=== PATIENT | male | born 1935 | race Caucasian/White ===

== ENCOUNTER 2019-07-09 01:55 | Inpatient (IN) | payer MEDICARE ==
[~2019-07-09] VITALS: Ht 175.3 cm; Wt 105.9 kg
[2019-07-09] VITALS (21 sets, daily range): BP systolic 108–178; BP diastolic 44–89
[~2019-07-09 01:55] MED LIST: AMLO-258 PO; ASPI-1443 PO; CHOL200059 PO; CYAN-52 PO; DOXA2TAB2 PO; FLAX100031 PO; GABA-531 PO; LOSA100T58 PO; METO-408 PO; NITR0.4T50 SL; OMEP20TA2 PO; SIMV-46 PO; SULF500T8 PO; WARF2.5T85 PO
[2019-07-09] MEDS ORDERED: HYDRALAZINE HCL 20 MG/ML VIAL IV PRN (05:45)
[2019-07-09] MEDS ORDERED: NITROGLYCERIN 0.4 MG SL TAB SL PRN ×2 (05:45→06:15)
[2019-07-09] MEDS ORDERED: LACTULOSE 20 GM/30 ML UDCUP PO PRN (05:45)
[2019-07-09] MEDS ORDERED: MORPHINE SULFATE 2 MG/ML 1ML SYG IV PRN (05:45)
[2019-07-09] MEDS ORDERED: ACETAMINOPHEN 325 MG TAB PO PRN ×2 (05:45)
[2019-07-09 06:38] LABS: BASOPHILS % (AUTO) 1.3 % (0.0-5.0); EOSINOPHILS % (AUTO) 7.4 % (0.0-8.0); HEMATOCRIT 38.4 % (42-54); LYMPHOCYTES % (AUTO) 32.2 % (21.0-51.0); MEAN CORPUSCULAR HEMOGLOBIN 28.1 pg (27.0-33.0); MEAN CORPUSCULAR HGB CONC 31.5 g/dL (32.0-36.0); MEAN CORPUSCULAR VOLUME 89.3 fL (79-99); MONOCYTES % (AUTO) 9.8 % (3.0-13.0); PLATELET COUNT (AUTO) 162 K/uL (130-400); RED CELL DISTRIBUTION WIDTH 13.7 % (11.0-15.5); WHITE BLOOD COUNT (AUTO) 6.3 K/uL (4.8-10.8)
[2019-07-09 06:47] LABS: CREATININE 1.4 mg/dL (0.5-1.5); POTASSIUM 4.1 mmol/L (3.5-5.1)
[2019-07-09 06:50] LABS: INR 1.02 (0.85-1.15); PARTIAL THROMBOPLASTIN TIME 29.2 SEC (26.3-35.5)
[2019-07-09 06:53] LABS: ALBUMIN 3.8 g/dL (3.5-5.0); BILIRUBIN,TOTAL 0.4 mg/dL (0.2-1.0); TOTAL PROTEIN, SERUM 7.2 g/dL (6.0-8.3)
[2019-07-09] MEDS ORDERED: AMIO200T6 PO (06:57)
[2019-07-09] MEDS ORDERED: APIX5TAB PO (07:02)
[2019-07-09] MEDS: METOPROLOL SUCCINATE 50 MG TAB.SR.24H PO SCH ×2 (08:59→18:33)
[2019-07-09] MEDS: ASPIRIN 81 MG EC TAB PO SCH (08:59)
[2019-07-09] MEDS: FAMOTIDINE/PF 20 MG/2 ML VIAL IV SCH (09:39)
[2019-07-09] MEDS ORDERED: SODIUM BICARB 50MEQ 50ML VIAL ONE (09:52)
[2019-07-09] MEDS ORDERED: HEPARIN SODIUM 1000UNIT/ML 10ML VIAL ONE ×2 (09:52→11:49)
[2019-07-09] MEDS ORDERED: NITROGLYCERIN 2 MG/VIAL VIAL IV ONE (09:52)
[2019-07-09] MEDS ORDERED: MEPERIDINE-PF 25 MG/ML SYG ONE ×2 (09:53→10:57)
[2019-07-09] MEDS ORDERED: MIDAZOLAM HCL 1 MG/ML 2ML VIAL ONE ×2 (09:53→10:57)
[2019-07-09] MEDS ORDERED: LIDOCAINE HCL 2% 20ML ONE (09:53)
[2019-07-09] MEDS ORDERED: IOHEXOL-350 50ML VIAL IV ONE (09:55)
[2019-07-09] MEDS ORDERED: IOHEXOL 350 MG/ML 100ML INFUS..BTL IV ONE (09:55)
--- NOTE | 2019-07-09 10:02 | NUR ---
INITIAL Met w patient at bedside for dc planning. verified phone numbers- number of spouse was incorrect- should be [phone]. Added to face sheet and faxed to registration, tagged chart, and informed Ely . Patient states he is independent, drives, uses a cane out of the house- home has three steps outside, is safe and accessible, shower bench- no services, PMD is ayanna in [place] and had seen 2x this year. Pharmacy [facility] in [place]. Spouse Liset to provide transport/care at discharge. called jama and informed her that pt ws turning off his phone, but she would be contacted when he returned to his room post procedure. [facility] TRANSFER- [facility]ENDING [facility] TODAY. HX of CABG in the past, states recovered well. DCP is home at this itme Addendum: 07/09/19 at 1010 by DAVID SERRATO RN Amended: Links added.
--- NOTE | 2019-07-09 10:10 | NUR ---
PATIENT OFF UNIT TO PUMP SERVICE SUPERVISOR FOR LEFT HEART CATHETERIZATION BY DR MARCOS
[2019-07-09] MEDS ORDERED: HEPARIN 25000 UNITS/250 ML D5W 250 ML IV SCH (11:45)
[2019-07-09] MEDS ORDERED: ALPRAZOLAM 0.5 MG TABLET PO PRN (11:45)
[2019-07-09] MEDS ORDERED: MORPHINE SULFATE 5 MG/ML VIAL IV PRN ×2 (11:45)
[2019-07-09] MEDS ORDERED: HEPARIN 25000 UNITS/250 ML D5W 250 ML IV ONE (11:49)
--- NOTE | 2019-07-09 12:40 | NUR ---
RECEIVED FROM DIETARY SERVICES DIRECTOR VIA BED ACCOMPANIED BY Dann AMOS RN. PT. DROWSY, ORIENTED X3. RESP.'S EVEN AND UNLABORED. DENIES ANY C/O SOB, DENIES ANY CURRENT PAIN. INSTRUCTED ON STRICT BR PER MD ORDERS AND RIGHT GROIN WITH FEMORAL SHEATH IN PLACE; VERBALIZED UNDERSTANDING. RIGHT GROIN WITH 6FR ARTERIAL SHEATH IN PLACE, AREA SOFT, NO ECCHYMOSIS OR HEMATOMA NOTED. CALL LIGHT WITHIN REACH, VERBALIZED ABILITY TO USE. BED LOW, SIDE RAILS UP X3.
[2019-07-09] MEDS ORDERED: MORPHINE SULFATE 4 MG/1ML SYG IV PRN (14:45)
--- NOTE | 2019-07-09 15:22 | NUR ---
PATIENT TRANSFERRED TO 16 ROOM REPORT GIVEN TO
--- NOTE | 2019-07-09 15:29 | NUR ---
RESTING IN BED IN REVERSE [place] POSITION FOR COMFORT. RIGHT SIDE-LYING POSITION. EYES CLOSED, RESP.'S EVEN AND UNLABORED. CALL LIGHT WITHIN REACH. SIDE RAILS UP.
[2019-07-09] MEDS: ONDANSETRON HCL 4 MG/2 ML VIAL IVP PRN (18:48)
[2019-07-09] MEDS: DOXAZOSIN MESYLATE 2 MG TABLET PO SCH (22:40)
[2019-07-09] MEDS: SIMVASTATIN 20 MG TABLET PO SCH (22:40)
[2019-07-10] VITALS (23 sets, daily range): BP systolic 98–158; BP diastolic 43–86
--- NOTE | 2019-07-10 03:33 | NUR ---
PATIENT UPDATE Pt kept npo post mn, going for Impella insertion, PTCA/ Stent placement this am. Continues with the heparin drip as per treatment protocol. Rt groin with the rt femoral a line in place, site soft to touch, a line patent, pulses in the rt lower extremity palpable. Reinforced instructions in keeping the rt leg straight, pt able to follow commands. Assisted in getting repositioned in the bed. No chest pain, no shortness of breath. Was comfortable with 2l of oxygen per nasal cannula, was nauseous at shift change, responded well with the zofran iv.CHG bath done, started sleeping well after the bedbath done before 0200.Vital signs stable, not in any form of acute distress. Running NSR bet 80's to 90's in the monitor, no ectopy noted. Will get the pt to sign the consent for the procedure at 0500.
[2019-07-10 04:36] LABS: HEMATOCRIT 30.4 % (42-54); MEAN CORPUSCULAR HEMOGLOBIN 27.9 pg (27.0-33.0); MEAN CORPUSCULAR HGB CONC 31.6 g/dL (32.0-36.0); MEAN CORPUSCULAR VOLUME 88.4 fL (79-99); PLATELET COUNT (AUTO) 115 K/uL (130-400); RED BLOOD CELL COUNT(AUTO) 3.44 MIL/uL (4.50-6.20); RED CELL DISTRIBUTION WIDTH 13.8 % (11.0-15.5); WHITE BLOOD COUNT (AUTO) 4.7 K/uL (4.8-10.8)
[2019-07-10 04:48] LABS: POTASSIUM 3.2 mmol/L (3.5-5.1)
[2019-07-10 04:52] LABS: B-TYPE NATRIURETIC PEPTIDE 196 pg/mL (0-100)
[2019-07-10] MEDS: FAMOTIDINE/PF 20 MG/2 ML VIAL IV SCH (09:11)
[2019-07-10] MEDS: ASPIRIN 81 MG EC TAB PO SCH (09:11)
[2019-07-10] MEDS: METOPROLOL SUCCINATE 50 MG TAB.SR.24H PO SCH ×2 (09:12→21:27)
[2019-07-10] MEDS: LOSARTAN 50 MG TABLET PO SCH (09:17)
[2019-07-10] MEDS: FUROSEMIDE 20 MG TABLET PO SCH (09:20)
[2019-07-10] MEDS ORDERED: HEPARIN SODIUM 1000UNIT/ML 10ML VIAL ONE ×2 (10:53→12:20)
[2019-07-10] MEDS ORDERED: SODIUM BICARB 50MEQ 50ML VIAL ONE (10:53)
[2019-07-10] MEDS ORDERED: IOHEXOL 350 MG/ML 100ML INFUS..BTL IV ONE (10:54)
[2019-07-10] MEDS ORDERED: MIDAZOLAM HCL 1 MG/ML 2ML VIAL ONE ×3 (10:54→13:09)
[2019-07-10] MEDS ORDERED: MEPERIDINE-PF 25 MG/ML SYG ONE ×3 (10:54→13:09)
[2019-07-10] MEDS ORDERED: IOHEXOL-350 50ML VIAL IV ONE (10:54)
[2019-07-10] MEDS ORDERED: NITROGLYCERIN 2 MG/VIAL VIAL IV ONE (10:54)
[2019-07-10] MEDS ORDERED: LIDOCAINE HCL 2% 20ML ONE (10:55)
[2019-07-10] MEDS ORDERED: POTASSIUM CHLORIDE 20MEQ/100ML 100 ML IV ONE (11:00)
--- NOTE | 2019-07-10 11:05 | NUR ---
PATIENT TAKEN TO ROUGH AND TRUING MACHINE OPERATOR VIA BED
[2019-07-10] MEDS ORDERED: IOHEXOL-350 75 ML VIAL IV ONE (12:53)
[2019-07-10] MEDS ORDERED: FLUMAZENIL 0.1MG/1ML 5ML VIAL IV ONE (14:31)
[2019-07-10] MEDS ORDERED: CLOPIDOGREL BISULFATE 300 MG TAB ONE (14:47)
[2019-07-10] MEDS ORDERED: CLOPIDOGREL BISULFATE 300 MG TAB PO STA (15:29)
[2019-07-10] MEDS ORDERED: ONDANSETRON HCL 4 MG/2 ML VIAL IVP STA (15:29)
--- NOTE | 2019-07-10 15:30 | NUR ---
PATIENT RETURNED FROM SPRAYER INSECTICIDE PATIENT NOW BACK IN ROOM, SHEATHS REMOVED, REFER TO POST CATH CHARTING
[2019-07-10] MEDS ORDERED: CLOPIDOGREL BISULFATE 300 MG TAB PO SCH (18:15)
[2019-07-10] MEDS ORDERED: CLOPIDOGREL BISULFATE 300 MG TAB PO ONE (18:15)
--- NOTE | 2019-07-10 19:45 | NUR ---
NURSING ROUNDS Pt alert and awake , denies any discomfort. Oscar groin with perclose dressing in place, soft to touch, no bleeding noted, pulses to oscar lower extremities good. With a hoffman catheter in place draining to adequate amount of urine. Started on one time hydration from Tank Car Mechanic with NS at 75 cc's per hour. No complaints of pain, verbalized feeling nauseous, emesis bag close by, head of the bed up, will give zofran prn. Reinforced instructions on bedrest for over 12 hrs, overnight and can be started out of bed in the am. No chest pain, no shortness of breath. Running normal sinus rhythm in the monitor in the 70's, no ectopies noted.
[2019-07-10] MEDS: DOXAZOSIN MESYLATE 2 MG TABLET PO SCH (21:26)
[2019-07-10] MEDS: ONDANSETRON HCL 4 MG/2 ML VIAL IVP PRN (21:26)
[2019-07-10] MEDS: SIMVASTATIN 20 MG TABLET PO SCH (21:26)
[2019-07-10] MEDS ORDERED: MAG HYDROX/AL HYDROX/SIMETH ES 30 ML SUSP UDCUP ONE (22:36)
[2019-07-11] VITALS (13 sets, daily range): BP systolic 91–132; BP diastolic 36–64
[2019-07-11 04:08] LABS: HEMATOCRIT 33.4 % (42-54); MEAN CORPUSCULAR HGB CONC 31.1 g/dL (32.0-36.0); PLATELET COUNT (AUTO) 119 K/uL (130-400); RED BLOOD CELL COUNT(AUTO) 3.71 MIL/uL (4.50-6.20); RED CELL DISTRIBUTION WIDTH 13.7 % (11.0-15.5); WHITE BLOOD COUNT (AUTO) 4.7 K/uL (4.8-10.8)
[2019-07-11 04:23] LABS: CREATININE 1.2 mg/dL (0.5-1.5); POTASSIUM 3.9 mmol/L (3.5-5.1)
--- NOTE | 2019-07-11 08:00 | NUR ---
DC F/C Figueroa catheter removed without difficulty. Patient tolerated well. Bilateral D-stat dressings removed and area cleaned. Covered with 4x4 dressings and Tegaderm.
[2019-07-11] MEDS ORDERED: FAMOTIDINE 20MG TAB 20 MG TAB ONE (08:12)
[2019-07-11] MEDS: METOPROLOL SUCCINATE 50 MG TAB.SR.24H PO SCH ×2 (08:40→20:09)
[2019-07-11] MEDS: ASPIRIN 81 MG EC TAB PO SCH (08:41)
[2019-07-11] MEDS: CLOPIDOGREL BISULFATE 75 MG TAB PO SCH (08:41)
[2019-07-11] MEDS: FUROSEMIDE 20 MG TABLET PO SCH (08:42)
[2019-07-11] MEDS: FAMOTIDINE 20MG TAB 20 MG TAB PO SCH ×2 (08:42→20:09)
[2019-07-11] MEDS: LOSARTAN 50 MG TABLET PO SCH (08:42)
--- NOTE | 2019-07-11 10:50 | NUR ---
Ambulated Patient ambulated around day patient area without difficulty. Vitals wnl after ambulation. Explained to patient he will be transferred to PCCU and patient verbalizes understanding.
--- NOTE | 2019-07-11 12:00 | NUR ---
HAND OFF REPORT HAND OFF REPORT GIVEN TO TONIA Quigley RN AND PATIENT TRANSFERRED TO ROOM 408 VIA . PATIENT WALKED IN HIS ROOM FROM TO BED WITHOUT DIFFICULTY.
--- NOTE | 2019-07-11 14:51 | NUR ---
DCP SW spoke with patient's spouse, Yeny Telfor, [phone]. Patient has no home services. DME: BPM, walker with seat, cane, nebulizer. Patient was able to complete ADL's independently and drove prior to coming to hospital. PCP is Dr. Nazario Tracy. Pharmacy is [facility] in [place]. Patient was transferred from [facility] in [place]. DCP is home.
[2019-07-11] MEDS: DOXAZOSIN MESYLATE 2 MG TABLET PO SCH (20:08)
[2019-07-11] MEDS: SIMVASTATIN 20 MG TABLET PO SCH (20:09)
[2019-07-12 00:28] VITALS: BP 119/63
[2019-07-12 04:04] LABS: BASOPHILS % (AUTO) 0.8 % (0.0-5.0); EOSINOPHILS % (AUTO) 4.2 % (0.0-8.0); HEMATOCRIT 33.4 % (42-54); LYMPHOCYTES % (AUTO) 33.4 % (21.0-51.0); MEAN CORPUSCULAR HEMOGLOBIN 28.6 pg (27.0-33.0); MEAN CORPUSCULAR HGB CONC 31.7 g/dL (32.0-36.0); MONOCYTES % (AUTO) 13.5 % (3.0-13.0); NEUTROPHILS % (AUTO) 47.7 % (40.0-77.0); PLATELET COUNT (AUTO) 111 K/uL (130-400); RED BLOOD CELL COUNT(AUTO) 3.71 MIL/uL (4.50-6.20); RED CELL DISTRIBUTION WIDTH 13.7 % (11.0-15.5)
[2019-07-12 04:13] LABS: CREATININE 1.3 mg/dL (0.5-1.5); POTASSIUM 4.1 mmol/L (3.5-5.1)
[2019-07-12 04:16] VITALS: BP 108/49
--- NOTE | 2019-07-12 07:30 | NUR ---
ASSESSMENT ENCOUNTERED PT A&OX3, CALM COOPERATIVE AND DOES NOT APPEAR TO BE IN ANY DISTRESS NOR ANY NEURO DEFICITS PRESENT. PT DENIES PAIN, SOB, NAUSEA. RT AND LT GROIN SOFT NONTENDER WITH NO OOZING OR HEMATOMA PRESENT. DP/PT PULSES PALPABLE BILATERALLY, PT IS AMBULATORY, GAIT STEADY AND STRONG WITH STAND BY ASSIST, PT IS ABLE TO TOLERATE, FOODS, FLUIDS AND MEDICATION WITH NO THROAT CLEARING OR COUGH. CALL LIGHT WITHIN REACH.
[2019-07-12 08:00] VITALS: BP 162/69
[2019-07-12] MEDS: ASPIRIN 81 MG EC TAB PO SCH (08:08)
[2019-07-12] MEDS: CLOPIDOGREL BISULFATE 75 MG TAB PO SCH (08:09)
[2019-07-12] MEDS: FAMOTIDINE 20MG TAB 20 MG TAB PO SCH (08:09)
[2019-07-12] MEDS: LOSARTAN 50 MG TABLET PO SCH (08:09)
[2019-07-12] MEDS: FUROSEMIDE 20 MG TABLET PO SCH (08:10)
[2019-07-12] MEDS: METOPROLOL SUCCINATE 50 MG TAB.SR.24H PO SCH (08:10)
[2019-07-12 12:00] VITALS: BP 119/62
--- NOTE | 2019-07-12 14:00 | NUR ---
DISCHARGE INSTRUCTIONS GIVEN, PIV REMOVED AND INTACT, DISCHARGED HOME TO FAMILY VEHICLE VIA WHEELCHAIR.
== END 2019-07-12 13:25 | disposition home or self-care (01) | DRG 215 ==
LOC: 4AH 05:05 → DAHIP 12:43 → 4BH 07-11 11:52
PROVIDERS: ADMIT Internal Medicine; ATTEND Internal Medicine
PROC: 4A023N7 Measurement of Cardiac Sampling and Pressure, Left Heart, Percutaneous Approach (ICD-10-PCS; principal; 2019-07-09)
PROC: B2151ZZ Fluoroscopy of Left Heart using Low Osmolar Contrast (ICD-10-PCS; 2019-07-09)
PROC: B2111ZZ Fluoroscopy of Multiple Coronary Arteries using Low Osmolar Contrast (ICD-10-PCS; 2019-07-09)
PROC: B2181ZZ Fluoroscopy of Left Internal Mammary Bypass Graft using Low Osmolar Contrast (ICD-10-PCS; 2019-07-09)
PROC: B2131ZZ Fluoroscopy of Multiple Coronary Artery Bypass Grafts using Low Osmolar Contrast (ICD-10-PCS; 2019-07-09)
PROC: 02HA3RZ Insertion of Short-term External Heart Assist System into Heart, Percutaneous Approach (ICD-10-PCS; 2019-07-10)
PROC: 5A0221D Assistance with Cardiac Output using Impeller Pump, Continuous (ICD-10-PCS; 2019-07-10)
PROC: 027337Z Dilation of Coronary Artery, Four or More Arteries with Four or More Drug-eluting Intraluminal Devices, Percutaneous Approach (ICD-10-PCS; 2019-07-10)
PROC: B2111ZZ Fluoroscopy of Multiple Coronary Arteries using Low Osmolar Contrast (ICD-10-PCS; 2019-07-10)
DX: T82.855A Stenosis of coronary artery stent, initial encounter (principal); I50.31 Acute diastolic (congestive) heart failure; I47.2 Ventricular tachycardia; I13.0 Hypertensive heart and chronic kidney disease with heart failure and stage 1 through stage 4 chronic kidney disease, or unspecified chronic kidney disease; J44.1 Chronic obstructive pulmonary disease with (acute) exacerbation; I31.3 Pericardial effusion (noninflammatory); I45.2 Bifascicular block; I48.0 Paroxysmal atrial fibrillation; N18.3 Chronic kidney disease, stage 3 (moderate); E78.5 Hyperlipidemia, unspecified; D64.9 Anemia, unspecified; I25.5 Ischemic cardiomyopathy; Y83.2 Surgical operation with anastomosis, bypass or graft as the cause of abnormal reaction of the patient, or of later complication, without mention of misadventure at the time of the procedure; Y92.89 Other specified places as the place of occurrence of the external cause; Z95.1 Presence of aortocoronary bypass graft; Z87.891 Personal history of nicotine dependence; Z79.01 Long term (current) use of anticoagulants; Z82.3 Family history of stroke; I25.119 Atherosclerotic heart disease of native coronary artery with unspecified angina pectoris
CPT/HCPCS: 33990; 36415; 80048; 80053; 82948; 83880; 85025; 85027; 85347; 85610; 85730; 93459; 99156; 99157; A4344; C1725; C1760; C1769; C1887; C1894; C9600; C9601; G0378; J0360; J1644; J2175; J2250; J2270; J2405; J3480; J3490; Q9967

== ENCOUNTER → 2020-08-05 | Outpatient (CLI) | payer MEDICARE ==
[~2020-08-05] MED LIST changes: +ALBUTEROL 0.083% 2.5 MG/3 ML INH IH ONE; +AMIO200T6 PO; -AMLO-258 PO; +APIX2.5T PO; +APIX5TAB PO; -ASPI-1443 PO; -CHOL200059 PO; +CLOP75TA32 PO; -CYAN-52 PO; -FLAX100031 PO; +FURO20TA4 PO; +GABA300C PO; +OMEP-459 PO; +SIMV40TA59 PO; +SPIR25TA PO; +VITAMIN B12 PO; +VITAMIN D3 PO; -WARF2.5T85 PO
== END | disposition home or self-care (01) ==
LOC: RESP 08:29
PROVIDERS: ATTEND Internal Medicine Cardiovascular Disease
DX: R06.00 Dyspnea, unspecified (principal)
CPT/HCPCS: 94060

== ENCOUNTER 2020-09-14 05:44 | Observation (INO) | payer MEDICARE ==
[2020-09-11 14:06] LABS: BASOPHILS % (AUTO) 0.9 % (0.0-5.0); EOSINOPHILS % (AUTO) 3.6 % (0.0-8.0); HEMATOCRIT 43.5 % (42-54); LYMPHOCYTES % (AUTO) 36.2 % (21.0-51.0); MEAN CORPUSCULAR HEMOGLOBIN 29.7 pg (27.0-33.0); MEAN CORPUSCULAR HGB CONC 31.7 g/dL (32.0-36.0); MEAN CORPUSCULAR VOLUME 93.5 fL (79-99); MONOCYTES % (AUTO) 10.9 % (3.0-13.0); NEUTROPHILS % (AUTO) 47.7 % (40.0-77.0); PLATELET COUNT (AUTO) 189 K/uL (130-400); RED BLOOD CELL COUNT(AUTO) 4.65 MIL/uL (4.50-6.20); RED CELL DISTRIBUTION WIDTH 13.4 % (11.0-15.5); WHITE BLOOD COUNT (AUTO) 5.9 K/uL (4.8-10.8)
[2020-09-11 14:12] LABS: CREATININE 1.8 mg/dL (0.5-1.5)
[2020-09-11 14:14] LABS: INR 1.05 (0.85-1.15); PROTHROMBIN TIME 11.4 SEC (9.6-11.6)
[2020-09-11 14:15] LABS: PARTIAL THROMBOPLASTIN TIME 27.9 SEC (26.3-35.5)
[2020-09-11 14:19] LABS: APPEARANCE,URINE Clear (CLEAR); BILIRUBIN,URINE Negative (NEGATIVE); COLOR,URINE Yellow (YELLOW); GLUCOSE, URINE (UA) Negative (NEGATIVE); KETONES,URINE Negative (NEGATIVE); LEUKOCYTE ESTERASE ,URINE Moderate (NEGATIVE); NITRATE,URINE Negative (NEGATIVE); OCCULT BLOOD,URINE Large (NEGATIVE); PROTEIN,URINE Negative (NEGATIVE); UROBILINOGEN,URINE 0.2 mg/dL (0.2-1.0)
[2020-09-11 15:14] LABS: BACTERIA,URINE Few /HPF (None Seen); YEAST,URINE BUDDING Rare /HPF (None Seen)
[2020-09-11 17:13] VITALS: BP 144/74
[~2020-09-14] VITALS: Ht 175.3 cm; Wt 110.7 kg
[2020-09-14] VITALS (13 sets, daily range): BP systolic 105–131; BP diastolic 49–77
[~2020-09-14 05:44] MED LIST changes: +0.9%NACL 1000ML 1,000 ML IV SCH; -ALBUTEROL 0.083% 2.5 MG/3 ML INH IH ONE; -APIX5TAB PO; -GABA300C PO; -LOSA100T58 PO; -NITR0.4T50 SL; -OMEP20TA2 PO; -SIMV-46 PO
[2020-09-14] MEDS ORDERED: 0.9%NACL 1000ML 1,000 ML IV ONE (06:11)
[2020-09-14] MEDS ORDERED: IOHEXOL-350 50ML VIAL IV ONE (07:02)
[2020-09-14] MEDS ORDERED: HEPARIN 10,000 UNIT/10ML (1,000 UNIT/ML) VIAL ONE ×2 (07:02→09:29)
[2020-09-14] MEDS ORDERED: NITROGLYCERIN 2 MG VIAL IV ONE ×2 (07:02→09:29)
[2020-09-14] MEDS ORDERED: SODIUM BICARB 50MEQ 50ML VIAL 50 ML ONE ×2 (07:02→09:29)
[2020-09-14] MEDS ORDERED: IOHEXOL 350 MG/ML 100ML INFUS..BTL IV ONE ×3 (07:02→09:29)
[2020-09-14] MEDS ORDERED: MEPERIDINE-PF 25 MG/ML SYG ONE ×3 (07:03→09:43)
[2020-09-14] MEDS ORDERED: MIDAZOLAM HCL 1 MG/ML 2ML VIAL ONE ×3 (07:03→09:44)
[2020-09-14] MEDS ORDERED: LIDOCAINE HCL 400MG/20ML VIAL ONE ×2 (07:03→09:30)
[2020-09-14] MEDS ORDERED: 0.9%NACL 1000ML 1,000 ML IV SCH ×2 (08:00→08:30)
[2020-09-14] MEDS ORDERED: ASPIRIN 81MG CHEW TAB ONE (08:15)
[2020-09-14] MEDS ORDERED: CLOPIDOGREL 300MG TAB ONE (08:15)
[2020-09-14] MEDS ORDERED: ONDANSETRON 4MG INJ IVP PRN (08:30)
[2020-09-14] MEDS ORDERED: NITROGLYCERIN 4.1 GM SPRAY TL ONE (08:43)
[2020-09-14] MEDS ORDERED: MAG/ALUM/SIMETH 30 ML UDCUP ONE (09:02)
[2020-09-14] MEDS ORDERED: LIDOCAINE HCL 2% VISCOUS 15 ML UDCUP ONE (09:02)
[2020-09-14] MEDS ORDERED: FAMOTIDINE 20MG VIAL IV ONE (10:02)
[2020-09-14] MEDS: PANTOPRAZOLE 40 MG/VIAL IVP SCH (10:15)
[2020-09-14] MEDS: 0.9%NACL 1000ML 1,000 ML IV SCH ×2 (12:45→23:44)
[2020-09-14] MEDS: CYANOCOBALAMIN (VITAMIN B-12) 1,000 MCG TABLET PO SCH (19:08)
[2020-09-14] MEDS: SULFASALAZINE 500 MG TAB.DR PO SCH (19:08)
[2020-09-14] MEDS: SPIRONOLACTONE 25 MG TAB PO SCH (20:44)
[2020-09-14] MEDS: ACETAMINOPHEN 325 MG TAB PO PRN (20:44)
[2020-09-14] MEDS ORDERED: METOPROLOL SUCCINATE 50 MG TAB.SR.24H PO SCH (21:00)
[2020-09-14] MEDS ORDERED: SIMVASTATIN 20 MG TABLET PO SCH (21:00)
[2020-09-14] MEDS ORDERED: GABAPENTIN 300 MG CAPSULE PO SCH (21:00)
[2020-09-14] MEDS ORDERED: DOXAZOSIN MESYLATE 2 MG TABLET PO SCH (21:00)
[2020-09-15 03:21] VITALS: BP 108/58
[2020-09-15 03:49] LABS: HEMATOCRIT 38.5 % (42-54); MEAN CORPUSCULAR HEMOGLOBIN 30.2 pg (27.0-33.0); MEAN CORPUSCULAR HGB CONC 32.2 g/dL (32.0-36.0); MEAN CORPUSCULAR VOLUME 93.7 fL (79-99); RED BLOOD CELL COUNT(AUTO) 4.11 MIL/uL (4.50-6.20); RED CELL DISTRIBUTION WIDTH 13.8 % (11.0-15.5); WHITE BLOOD COUNT (AUTO) 5.4 K/uL (4.8-10.8)
[2020-09-15 04:06] LABS: CREATININE 1.4 mg/dL (0.5-1.5); POTASSIUM 4.5 mmol/L (3.5-5.1)
[2020-09-15 07:00] VITALS: BP 118/62
[2020-09-15] MEDS ORDERED: AMIODARONE 200 MG TABLET PO SCH (08:00)
[2020-09-15] MEDS ORDERED: VITAMIN D3 2000 MG PO SCH (09:00)
[2020-09-15] MEDS ORDERED: CLOPIDOGREL 75MG TAB PO SCH (09:00)
[2020-09-15] MEDS ORDERED: APIXABAN 5 MG TABLET PO SCH (09:00)
[2020-09-15] MEDS ORDERED: FUROSEMIDE 20 MG TABLET PO SCH (09:00)
[2020-09-15] MEDS: PANTOPRAZOLE 40 MG/VIAL IVP SCH (09:12)
[2020-09-15] MEDS: SPIRONOLACTONE 25 MG TAB PO SCH (09:14)
[2020-09-15] MEDS: SULFASALAZINE 500 MG TAB.DR PO SCH (09:14)
[2020-09-15] MEDS: CYANOCOBALAMIN (VITAMIN B-12) 1,000 MCG TABLET PO SCH (09:15)
[2020-09-15 11:00] VITALS: BP 103/61
[2020-09-15] MEDS: ACETAMINOPHEN 325 MG TAB PO PRN (12:29)
[2020-09-15 15:00] VITALS: BP 124/66
== END 2020-09-15 16:08 | disposition home or self-care (01) ==
LOC: DAH 05:44 → DAHIP 05:45 → 4DH 12:54
PROVIDERS: ADMIT Internal Medicine; ATTEND Internal Medicine
DX: I25.119 Atherosclerotic heart disease of native coronary artery with unspecified angina pectoris (principal); I48.0 Paroxysmal atrial fibrillation; I50.9 Heart failure, unspecified; N18.9 Chronic kidney disease, unspecified; Z86.73 Personal history of transient ischemic attack (TIA), and cerebral infarction without residual deficits; Z79.899 Other long term (current) drug therapy; Z95.1 Presence of aortocoronary bypass graft; Z79.01 Long term (current) use of anticoagulants
CPT/HCPCS: 36415 ×3; 71045; 80048 ×2; 81001; 85025; 85027; 85347 ×2; 85610; 85730; 87088; 92920; 93005 ×2; 93454; 93459; 96361 ×2; 96374; 96375; C1725; C1760 ×4; C1769 ×2; C1887 ×2; C1894 ×2; C9113; G0378 ×30; J1644 ×3; J2175 ×3; J2250 ×3; J2405; J3490 ×7; J7030; Q9965 ×2; Q9967 ×2; 99156; 99157

== ENCOUNTER 2021-11-01 07:04 | Day surgery (SDC) | payer MEDICARE ==
[2021-10-28 11:05] LABS: APPEARANCE,URINE CLEAR (CLEAR); BILIRUBIN,URINE NEGATIVE (NEGATIVE); COLOR,URINE YELLOW (YELLOW); GLUCOSE, URINE (UA) NEGATIVE (NEGATIVE); KETONES,URINE NEGATIVE (NEGATIVE); LEUKOCYTE ESTERASE ,URINE SMALL (NEGATIVE); NITRATE,URINE NEGATIVE (NEGATIVE); OCCULT BLOOD,URINE NEGATIVE (NEGATIVE); PH,URINE 5.5 (5.0-8.0); PROTEIN,URINE NEGATIVE (NEGATIVE); UROBILINOGEN,URINE 0.2 mg/dL (0.2-1.0)
[2021-10-28 11:12] LABS: BASOPHILS % (AUTO) 1.3 % (0.0-5.0); EOSINOPHILS % (AUTO) 3.2 % (0.0-8.0); HEMATOCRIT 42.8 % (42-54); LYMPHOCYTES % (AUTO) 32.4 % (21.0-51.0); MEAN CORPUSCULAR HEMOGLOBIN 30.7 pg (27.0-33.0); MEAN CORPUSCULAR HGB CONC 32.7 g/dL (32.0-36.0); MEAN CORPUSCULAR VOLUME 93.9 fL (79-99); MONOCYTES % (AUTO) 9.4 % (3.0-13.0); NEUTROPHILS % (AUTO) 53.4 % (40.0-77.0); PLATELET COUNT (AUTO) 192 K/uL (130-400); RED BLOOD CELL COUNT(AUTO) 4.56 MIL/uL (4.50-6.20); RED CELL DISTRIBUTION WIDTH 13.5 % (11.0-15.5); WHITE BLOOD COUNT (AUTO) 5.9 K/uL (4.8-10.8)
[2021-10-28 11:13] LABS: CREATININE 1.7 mg/dL (0.5-1.5); POTASSIUM 4.4 mmol/L (3.5-5.1)
[2021-10-28 11:24] LABS: B-TYPE NATRIURETIC PEPTIDE 59 pg/mL (0-100)
[2021-10-28 11:27] LABS: BACTERIA,URINE Rare /HPF (None Seen); MUCUS,URINE Moderate LPF (None Seen); RBC,URINE None Seen /HPF (0-1); WBC,URINE 0-1 /HPF (0-1)
[2021-10-28 11:40] LABS: PROTHROMBIN TIME 10.9 SEC (9.6-11.6)
[2021-10-28 11:41] LABS: PARTIAL THROMBOPLASTIN TIME 29.8 SEC (26.3-35.5)
[2021-10-29 10:44] VITALS: BP 138/72
[2021-11-01] VITALS (11 sets, daily range): BP systolic 106–142; BP diastolic 54–76
[~2021-11-01] VITALS: Ht 177.8 cm; Wt 109.1 kg
[~2021-11-01 07:04] MED LIST changes: -AMIO200T6 PO; -APIX2.5T PO; +APIX5TAB PO; +FLAX100031 PO; -OMEP-459 PO; +PANT40TA PO
[2021-11-01] MEDS ORDERED: NITROGLYCERIN 50MG VIAL ONE (09:35)
[2021-11-01] MEDS ORDERED: SODIUM BICARB 50MEQ 50ML VIAL 50 ML ONE (09:35)
[2021-11-01] MEDS ORDERED: IOHEXOL-350 75 ML VIAL IV ONE (09:35)
[2021-11-01] MEDS ORDERED: HEPARIN 10,000 UNIT/10ML (1,000 UNIT/ML) VIAL ONE (09:35)
[2021-11-01] MEDS ORDERED: IOHEXOL 350 MG/ML 100ML INFUS..BTL IV ONE (09:35)
[2021-11-01] MEDS ORDERED: LIDOCAINE HCL 400MG/20ML VIAL ONE (09:36)
[2021-11-01] MEDS ORDERED: MEPERIDINE-PF 25 MG/ML SYG ONE ×3 (09:36→10:55)
[2021-11-01] MEDS ORDERED: MIDAZOLAM HCL 1 MG/ML 2ML VIAL ONE ×3 (09:36→10:55)
[2021-11-01] MEDS ORDERED: IOHEXOL-350 50ML VIAL IV ONE (10:29)
[2021-11-01] MEDS ORDERED: NITROGLYCERIN 4.1 GM SPRAY TL ONE (10:36)
[2021-11-01] MEDS ORDERED: ASPIRIN 81MG CHEW TAB ONE (11:08)
[2021-11-01] MEDS ORDERED: ONDANSETRON 4MG INJ IVP PRN (11:30)
[2021-11-01] MEDS ORDERED: ACETAMINOPHEN WITH CODEINE 1 TAB TAB PO PRN ×2 (11:30)
== END 2021-11-01 16:45 | disposition home or self-care (01) ==
LOC: DAH 07:04
PROVIDERS: ATTEND Internal Medicine Cardiovascular Disease
DX: I25.110 Atherosclerotic heart disease of native coronary artery with unstable angina pectoris (principal); T82.855A Stenosis of coronary artery stent, initial encounter; I25.82 Chronic total occlusion of coronary artery; I25.810 Atherosclerosis of coronary artery bypass graft(s) without angina pectoris; I49.1 Atrial premature depolarization; I48.0 Paroxysmal atrial fibrillation; I45.2 Bifascicular block; N18.31 Chronic kidney disease, stage 3a; Z79.01 Long term (current) use of anticoagulants; Z79.899 Other long term (current) drug therapy; Z86.73 Personal history of transient ischemic attack (TIA), and cerebral infarction without residual deficits; Z98.890 Other specified postprocedural states; Y83.8 Other surgical procedures as the cause of abnormal reaction of the patient, or of later complication, without mention of misadventure at the time of the procedure
CPT/HCPCS: 80048; 83880; 85025; 85610; 85730; 81001; 36415; 71045; 93005; 93459; C9600; C1769 ×3; C1887; C1894; C1760 ×2; C1874; C1725; Q9965; J3490 ×3; J7030; J1644 ×2; J2250 ×3; J2175 ×3; Q9967 ×2; A4215; A4222; A4221; A4663; A4216; A4606; A4223 ×3; 99156; 99157

== ENCOUNTER 2022-11-18 08:28 | Observation (INO) | payer MEDICARE ==
[2022-11-15 13:04] LABS: BASOPHILS # (AUTO) 0.07 K/uL (0.00-0.20); EOSINOPHILS # (AUTO) 0.29 K/uL (0.00-0.70); EOSINOPHILS % (AUTO) 4.3 % (0.0-8.0); HEMATOCRIT 40.8 % (42-54); IMMATURE GRANULOCYTE ABSOLUTE 0.03 K/uL (0-1); LYMPHOCYTES # (AUTO) 2.1 K/uL (1.0-4.8); LYMPHOCYTES % (AUTO) 30.6 % (21.0-51.0); MEAN CORPUSCULAR HEMOGLOBIN 30.8 pg (27.0-33.0); MEAN CORPUSCULAR HGB CONC 33.1 g/dL (32.0-36.0); MEAN CORPUSCULAR VOLUME 93.2 fL (79-99); MONOCYTES # (AUTO) 0.7 K/uL (0.1-1.0); MONOCYTES % (AUTO) 10.3 % (3.0-13.0); NEUTROPHILS # (AUTO) 3.6 K/uL (1.8-7.7); NEUTROPHILS % (AUTO) 53.4 % (40.0-77.0); PLATELET COUNT (AUTO) 181 K/uL (130-400); RED BLOOD CELL COUNT(AUTO) 4.38 MIL/uL (4.50-6.20); RED CELL DISTRIBUTION WIDTH 13.8 % (11.0-15.5); WHITE BLOOD COUNT (AUTO) 6.7 K/uL (4.8-10.8)
[2022-11-15 13:13] LABS: CREATININE 1.9 mg/dL (0.5-1.5); POTASSIUM 4.9 mmol/L (3.5-5.1)
[2022-11-15 13:15] VITALS: BP 142/74; PULSE 75; RESP 19
[2022-11-15 13:15] LABS: INR 0.94 (0.85-1.15)
[2022-11-15 13:22] LABS: APPEARANCE,URINE CLEAR (CLEAR); BILIRUBIN,URINE NEGATIVE (NEGATIVE); COLOR,URINE LIGHT-YELLOW (YELLOW); GLUCOSE, URINE (UA) NEGATIVE (NEGATIVE); KETONES,URINE NEGATIVE (NEGATIVE); LEUKOCYTE ESTERASE ,URINE NEGATIVE Leu/uL (NEGATIVE); NITRATE,URINE NEGATIVE (NEGATIVE); OCCULT BLOOD,URINE NEGATIVE (NEGATIVE); PROTEIN,URINE NEGATIVE (NEGATIVE); UROBILINOGEN,URINE 0.2 mg/dL (0.2-1.0)
[2022-11-15 13:25] LABS: ADD UA MICROSCOPIC NO
[2022-11-15 13:50] LABS: B-TYPE NATRIURETIC PEPTIDE 74 pg/mL (0-100)
[2022-11-18] VITALS (15 sets, daily range): BP systolic 110–152; BP diastolic 53–84; PULSE 66–100; RESP 18–20; O2SAT 98
[~2022-11-18] VITALS: Ht 175.3 cm; Wt 105.7 kg
[~2022-11-18 08:28] MED LIST changes: -0.9%NACL 1000ML 1,000 ML IV SCH; -FURO20TA4 PO; +FURO40TA5 PO; -GABA-531 PO; -METO-408 PO; +ROSU40TA21 PO; -SIMV40TA59 PO
[2022-11-18] MEDS: 0.9%NACL 1000ML 1,000 ML IV SCH ×2 (11:15→21:20)
[2022-11-18] MEDS ORDERED: FENTANYL CITRATE PF 50 MCG/1 ML 2ML VIAL ONE ×2 (15:00→23:21)
[2022-11-18] MEDS ORDERED: SODIUM BICARB 50MEQ 50ML VIAL 50 ML ONE (15:54)
[2022-11-18] MEDS ORDERED: IOHEXOL 350 MG/ML 100ML INFUS..BTL IV ONE (15:54)
[2022-11-18] MEDS ORDERED: LIDOCAINE HCL 400MG/20ML VIAL ONE (15:54)
[2022-11-18] MEDS ORDERED: NITROGLYCERIN 50MG VIAL ONE (15:55)
[2022-11-18] MEDS ORDERED: NICARDIPINE 25MG INJ IV ONE (15:55)
[2022-11-18] MEDS ORDERED: HEPARIN 10,000 UNIT/10ML (1,000 UNIT/ML) VIAL ONE (15:55)
[2022-11-18] MEDS ORDERED: IOHEXOL-350 50ML VIAL IV ONE (15:55)
[2022-11-18] MEDS ORDERED: MIDAZOLAM HCL 1 MG/ML 2ML VIAL ONE ×2 (16:05→16:53)
[2022-11-18] MEDS ORDERED: MEPERIDINE-PF 25 MG/ML SYG ONE ×2 (16:05→16:53)
[2022-11-18] MEDS ORDERED: 0.9%NACL 1000ML 1,000 ML IV SCH (17:30)
[2022-11-18] MEDS ORDERED: ACETAMINOPHEN WITH CODEINE 1 TAB TAB PO PRN ×2 (17:30)
[2022-11-18] MEDS ORDERED: ASPIRIN 325MG EC TAB PO ONE (17:34)
[2022-11-18] MEDS ORDERED: FENTANYL CITRATE PF 50 MCG/1 ML 2ML VIAL IVP ONE (23:30)
[2022-11-19 00:52] VITALS: BP 129/76; PULSE 97; RESP 20
[2022-11-19 03:59] VITALS: BP 137/79; PULSE 69; RESP 18
[2022-11-19] MEDS: 0.9%NACL 1000ML 1,000 ML IV SCH (04:00)
[2022-11-19 05:12] LABS: HEMATOCRIT 37.7 % (42-54); MEAN CORPUSCULAR HEMOGLOBIN 30.5 pg (27.0-33.0); MEAN CORPUSCULAR HGB CONC 32.6 g/dL (32.0-36.0); MEAN CORPUSCULAR VOLUME 93.5 fL (79-99); RED BLOOD CELL COUNT(AUTO) 4.03 MIL/uL (4.50-6.20); RED CELL DISTRIBUTION WIDTH 13.7 % (11.0-15.5); WHITE BLOOD COUNT (AUTO) 4.9 K/uL (4.8-10.8)
[2022-11-19 05:20] LABS: CREATININE 1.3 mg/dL (0.5-1.5); POTASSIUM 4.6 mmol/L (3.5-5.1)
[2022-11-19 08:00] VITALS: BP 118/65; PULSE 78; RESP 16; O2SAT 95
[2022-11-19] MEDS ORDERED: DOXAZOSIN MESYLATE 2 MG TABLET PO SCH ×2 (09:00→21:00)
[2022-11-19] MEDS: APIXABAN 5 MG TABLET PO SCH ×2 (09:49→21:23)
[2022-11-19] MEDS: CLOPIDOGREL 75MG TAB PO SCH (09:49)
[2022-11-19 13:03] VITALS: BP 127/65; PULSE 90; RESP 26
[2022-11-19 16:54] VITALS: BP 134/71; PULSE 77; RESP 18
[2022-11-19] MEDS ORDERED: 0.9%NACL 1000ML 500 ML IV SCH (17:30)
[2022-11-19] MEDS ORDERED: ACETAMINOPHEN 500 MG TABLET PO PRN (17:30)
[2022-11-19 17:37] LABS: APPEARANCE,URINE CLEAR (CLEAR); BILIRUBIN,URINE NEGATIVE (NEGATIVE); COLOR,URINE COLORLESS (YELLOW); GLUCOSE, URINE (UA) NEGATIVE (NEGATIVE); KETONES,URINE NEGATIVE (NEGATIVE); LEUKOCYTE ESTERASE ,URINE NEGATIVE Leu/uL (NEGATIVE); NITRATE,URINE NEGATIVE (NEGATIVE); OCCULT BLOOD,URINE NEGATIVE (NEGATIVE); PROTEIN,URINE NEGATIVE (NEGATIVE); UROBILINOGEN,URINE 0.2 mg/dL (0.2-1.0)
[2022-11-19 17:38] LABS: ADD UA MICROSCOPIC YES
[2022-11-19 17:39] LABS: MUCUS,URINE RARE LPF (None Seen); RBC,URINE 0-1 /HPF (0-1)
[2022-11-19 17:44] LABS: CREATININE 1.4 mg/dL (0.5-1.5); POTASSIUM 4.1 mmol/L (3.5-5.1)
[2022-11-19] MEDS ORDERED: 0.9%NACL 1000ML 1,000 ML IV ONE (18:00)
[2022-11-19] MEDS ORDERED: ONDANSETRON 4MG INJ IVP ONE (18:30)
[2022-11-19] MEDS ORDERED: CEFTRIAXONE 1G VIAL IVPB SCH (20:00)
[2022-11-19 20:30] VITALS: BP 120/59; PULSE 83; RESP 17; O2SAT 95
[2022-11-19] MEDS ORDERED: NON-FORMULARY MEDICATION 1 EACH (Rosuvastatin Calcium 40 MG) PO SCH (21:00)
[2022-11-19] MEDS ORDERED: ATORVASTATIN 40 MG TABLET PO SCH (21:00)
[2022-11-19] MEDS ORDERED: APIXABAN 5 MG TABLET PO SCH (21:00)
[2022-11-19] MEDS: SPIRONOLACTONE 25 MG TAB PO SCH (21:23)
[2022-11-20 00:04] VITALS: BP 120/67; PULSE 70; RESP 17
[2022-11-20 07:56] VITALS: BP 109/62; PULSE 75; RESP 16
[2022-11-20 08:00] VITALS: O2SAT 95
[2022-11-20] MEDS: SPIRONOLACTONE 25 MG TAB PO SCH (08:38)
[2022-11-20] MEDS: CLOPIDOGREL 75MG TAB PO SCH (08:39)
[2022-11-20] MEDS: APIXABAN 5 MG TABLET PO SCH (08:39)
[2022-11-20] MEDS ORDERED: SULFASALAZINE 500 MG PO SCH (09:00)
[2022-11-20] MEDS ORDERED: SULFASALAZINE 500 MG TAB.DR PO SCH (09:00)
[2022-11-20] MEDS ORDERED: PANTOPRAZOLE 40 MG TAB DR PO SCH (09:00)
[2022-11-20] MEDS ORDERED: CLOPIDOGREL 75MG TAB PO SCH (09:00)
[2022-11-20 12:29] VITALS: BP 111/53; PULSE 75; RESP 16
== END 2022-11-20 13:19 | disposition home or self-care (01) ==
LOC: DAH 08:28 → DAHIP 08:29 → 2DH 18:25
PROVIDERS: ADMIT Internal Medicine Cardiovascular Disease; ATTEND Internal Medicine Cardiovascular Disease
DX: I25.119 Atherosclerotic heart disease of native coronary artery with unspecified angina pectoris (principal); T82.855A Stenosis of coronary artery stent, initial encounter; I48.0 Paroxysmal atrial fibrillation; I13.0 Hypertensive heart and chronic kidney disease with heart failure and stage 1 through stage 4 chronic kidney disease, or unspecified chronic kidney disease; I50.9 Heart failure, unspecified; N18.9 Chronic kidney disease, unspecified; R33.9 Retention of urine, unspecified; E78.5 Hyperlipidemia, unspecified; Y83.1 Surgical operation with implant of artificial internal device as the cause of abnormal reaction of the patient, or of later complication, without mention of misadventure at the time of the procedure; Z95.1 Presence of aortocoronary bypass graft; Z79.899 Other long term (current) drug therapy; Z79.01 Long term (current) use of anticoagulants
CPT/HCPCS: 80048 ×3; 83880; 85025; 85610; 85730; 81003; 36415 ×2; 71045 ×2; 93005 ×3; 93459; 96375 ×2; 85347 ×2; 96365; 96366; 84484; 85027; 87088; 81001; 97161; 97116; C1769 ×4; C1887; C1894; C1760; C1874; Q9965; C1725; G0378 ×42; J3010 ×2; J3490 ×3; J7030; J1644 ×2; J2250 ×2; J2175 ×2; Q9967; A4215; A4223 ×3; A4222; A4221; A4663; A4216; A4606; C9600; J0696; J2405; A4344; 96360; 99156; 99157